=== PATIENT | female | born 1950 | race Caucasian/White ===

== ENCOUNTER 2021-11-20 10:16 | Emergency (ER) | payer MEDICARE ==
[~2021-11-20] VITALS: Ht 167.6 cm; Wt 102.3 kg
[2021-11-20 10:39] VITALS: TEMP 97.9
[2021-11-20 11:15] LABS: BASO % 0.2 % (0.0-2.0); EOS % 0.1 % (0.0-4.0); GRAN # 12.3 K/mm3 (1.4-6.5); GRAN % 82.6 % (42.2-75.2); HEMOGLOBIN 12.5 g/dl (12.5-16.0); LYMPH # 1.8 K/mm3 (1.2-3.4); LYMPH % 11.9 % (20.0-51.0); MEAN CELL VOLUME 85 fl (80.0-100.0); MEAN CORPUSCULAR HEMOGLOBIN 29 pg (27-31); MEAN CORPUSCULAR HGB CONC 34 g/dl (33.0-37.0); MEAN PLATELET VOLUME 9.4 fl (7.4-10.4); MONO # 0.7 K/mm3 (0.1-0.6); MONO % 4.4 % (1.7-9.3); PLATELET COUNT 469 K/mm3 (130-400); RED BLOOD COUNT 4.29 M/mm3 (4.10-5.30); REDCELL DISTRIBUTION WIDTH-CV 13.3 % (11.5-14.5)
[2021-11-20 11:17] LABS: HEMATOCRIT 36.5 % (37.0-47.0)
[2021-11-20 11:44] LABS: ALANINE AMINOTRANSFERASE 32 U/L (0-55); ALBUMIN 3.7 gm/dL (3.4-4.8); ALKALINE PHOSPHATASE 179 U/L (40-150); ANION GAP 17 mmol/L (7-16); AST,SGOT 29 U/L (5-34); BILIRUBIN,TOTAL 1.4 mg/dL (0.2-1.2); CALCIUM 9.2 mg/dL (8.4-10.2); CARBON DIOXIDE 19 mmol/L (23-31); CHLORIDE 97 mmol/L (98-107); CREATININE, serum 0.96 mg/dL (0.57-1.11); GLUCOSE 328 mg/dL (70-99); POTASSIUM 3.6 mmol/L (3.5-4.5); SODIUM 133 mmol/L (136-145); TOTAL PROTEIN 7.7 gm/dL (6.2-8.1)
[2021-11-20] MEDS ORDERED: NEURONTIN300 MG/CAP PO (11:44)
[2021-11-20] MEDS ORDERED: HUMALOG100 U/ML SQ (11:45)
[2021-11-20] MEDS ORDERED: ALTACE 10MG TAB10 MG PO (11:46)
[2021-11-20] MEDS ORDERED: SYNTHROID 0.10.15 MG PO (11:46)
[2021-11-20] MEDS ORDERED: LIPITOR 40MG TA40 MG PO (11:46)
[2021-11-20] MEDS ORDERED: HYGROTON 2525 MG/TAB (11:47)
[2021-11-20] MEDS ORDERED: PEPCID 20MG TAB20 MG PO (11:47)
[2021-11-20] MEDS ORDERED: COMPLETE MULTI1 TAB PO (11:48)
[2021-11-20] MEDS ORDERED: ATARAX 10MG10 MG/TAB PO (11:48)
[2021-11-20] MEDS ORDERED: MASON NATURAL500 MG PO (11:48)
[2021-11-20] MEDS ORDERED: VITAMIN D31000 I1 PO (11:49)
[2021-11-20] MEDS ORDERED: VITAMIN B COMPL1 SGL PO (11:49)
[2021-11-20] MEDS ORDERED: VITAMINC1000TA (11:49)
[2021-11-20 11:50] LABS: TROPONIN-I < 0.010 ng/mL (0.00-0.033)
[2021-11-20] MEDS ORDERED: CALCIUM-500 5001 CTB PO (11:50)
[2021-11-20 11:57] LABS: BLOOD UREA NITROGEN 17 mg/dL (10-20)
[2021-11-20] MEDS ORDERED: ZOFRAN ODT4 MG PO (15:20)
[2021-11-20 16:00] VITALS: BP 150/68; PULSE 84
== END 2021-11-20 16:25 | disposition home or self-care (01) ==
LOC: COL.ER 10:16
PROVIDERS: Nurse Practitioner
DX: E10.65 Type 1 diabetes mellitus with hyperglycemia (principal); I10 Essential (primary) hypertension; E78.5 Hyperlipidemia, unspecified; Z79.4 Long term (current) use of insulin; Z79.899 Other long term (current) drug therapy
CPT/HCPCS: J2405; J2550; J7030